=== PATIENT | male | born 1985 | race Two or more races ===

== ENCOUNTER 2020-08-08 09:43 | Emergency (ER) | payer OTHER ==
[~2020-08-08] VITALS: Ht 177.8 cm; Wt 95.3 kg
[2020-08-08] MEDS ORDERED: KETO10TA2 PO (15:21)
== END 2020-08-08 15:43 | disposition home or self-care (01) ==
LOC: ER 09:43
DX: S93.401A Sprain of unspecified ligament of right ankle, initial encounter (principal); S93.691A Other sprain of right foot, initial encounter; X50.0XXA Overexertion from strenuous movement or load, initial encounter; Y93.89 Activity, other specified; Y92.89 Other specified places as the place of occurrence of the external cause; Y99.8 Other external cause status